=== PATIENT | female | born 1955 | race Caucasian/White ===

== ENCOUNTER 2017-04-15 13:10 | Emergency (ER) | payer BC ==
[~2017-04-15] VITALS: Ht 177.8 cm; Wt 145.1 kg
[2017-04-15 13:10] VITALS: BP_SYST 159
--- NOTE | 2017-04-15 13:10 | NUR ---
BROUGHT BACK TO BED #7 AND TRIAGED, REPORT GIVEN TO BHAVIK
--- NOTE | 2017-04-15 14:56 | NUR ---
ER at bedside examining patient.
[2017-04-15] MEDS ORDERED: KETOROLAC TROMETHAMINE 60 MG/2 ML VIAL IM ONE (15:00)
--- NOTE | 2017-04-15 15:31 | NUR ---
Medicated with Toradol for 09/24 to right ankle and left knee s/p mechanical fall. Denies dizziness or KO
[2017-04-15 15:58] VITALS: BP_SYST 146
--- NOTE | 2017-04-15 15:58 | NUR ---
Patient given written and verbal discharge instructions and verbalizes understanding. ER MD discussed with patient the results and treatment provided. Patient in stable condition. ID arm band removed. Rx of [place] and Motrin given. Patient educated on pain management and to follow up with PMD in 2-3 days. Pain Scale 0/10 Opportunity for questions provided and answered. Medication side effect fact sheet provided.
== END 2017-04-15 15:58 | disposition home or self-care (01) ==
LOC: SED 13:10
DX: S82.61XA Displaced fracture of lateral malleolus of right fibula, initial encounter for closed fracture (principal); M25.562 Pain in left knee; Z88.0 Allergy status to penicillin; Z90.49 Acquired absence of other specified parts of digestive tract; Z90.89 Acquired absence of other organs; Z90.710 Acquired absence of both cervix and uterus; W01.0XXA Fall on same level from slipping, tripping and stumbling without subsequent striking against object, initial encounter; Y93.89 Activity, other specified; Y92.89 Other specified places as the place of occurrence of the external cause; Y99.8 Other external cause status
CPT/HCPCS: 29515; 73564; 73610; 96372; 99284; J1885

== ENCOUNTER 2017-12-14 04:23 | Emergency (ER) | payer BC ==
[~2017-12-14] VITALS: Ht 177.8 cm; Wt 154.2 kg
--- NOTE | 2017-12-14 04:28 | NUR ---
Placed in room 7 . Placed on air sampling and monitoring, blood pressure machine and pulse oximeter. To gown for exam. Side rails up.
[2017-12-14 04:29] VITALS: BP_SYST 170
--- NOTE | 2017-12-14 04:30 | NUR ---
Patient AOx4, ambulatory, presents to ER with complaint of CP 7/10 that woke her up from her sleep. Patient states she felt a tingling sensation to her left arm and a sharp/stabbing pain from the left axilla to the sternum. Patient states she medicated with 2 ASA without relief. Patient states she had an episode of nausea. Per patient, the CP increases with movement and deep breaths. Patient has hx of panic attacks x20 yrs, HTN, and GERD. Patient states she has not medicated with BP meds this morning. BP 170/93. No other symptoms or complaints.
[2017-12-14] MEDS ORDERED: MOEX15TA2 PO (04:38)
[2017-12-14] MEDS ORDERED: ESOM40CA53 PO (04:38)
[2017-12-14] MEDS ORDERED: FURO-149 PO (04:38)
[2017-12-14] MEDS ORDERED: POTA10TA15 PO (04:38)
[2017-12-14] MEDS ORDERED: ALPR0.5T PO (04:38)
--- NOTE | 2017-12-14 04:38 | NUR ---
Medication reconciliation completed with information provided by patient. Any prior medication reconciliation on file was reviewed and corrected.
--- NOTE | 2017-12-14 04:40 | NUR ---
Note undone in EDM - 12/14/17 at 0503 by [email or web address] # [] gauge angiocath placed to []. Use of asceptic technique. Opsite placed over site. Blood return noted. Blood for lab drawn from site. Flushed with 10 cc of normal saline. No evidence of infiltration noted. Patient tolerated well.
--- NOTE | 2017-12-14 04:43 | NUR ---
# 20 gauge angiocath placed to RFA. Use of asceptic technique. Opsite placed over site. Blood return noted. Blood for lab drawn from site. Flushed with 10 cc of normal saline. No evidence of infiltration noted. Patient tolerated well.
--- NOTE | 2017-12-14 04:50 | NUR ---
ER MD Kan at bedside for medical evaluation.
--- NOTE | 2017-12-14 05:13 | NUR ---
Pt resting comfortably in hospital bed. No acute distress, will continue to monitor.
[2017-12-14 05:18] LABS: CALCIUM 8.5 mg/dL (8.4-11.0); CREATININE 1.08 mg/dL (0.55-1.30); POTASSIUM 4.3 mmol/L (3.5-5.1)
[2017-12-14 05:22] LABS: INR 0.9 (0.8-1.2); PROTHROMBIN TIME 9.5 SECS (9.5-12.5)
[2017-12-14 05:24] LABS: ALBUMIN 3.2 g/dL (3.4-4.8); TOTAL BILIRUBIN 0.2 mg/dL (0.0-1.0)
[2017-12-14 05:40] LABS: HEMOGLOBIN 12.6 g/dL (12.0-16.0); WHITE BLOOD COUNT (AUTO) 7.5 K/uL (4.8-10.8)
[2017-12-14 05:41] LABS: HEMATOCRIT 39.7 % (36-48); LYMPHOCYTES % (AUTO) 20.8 % (20.5-51.5); MEAN CORPUSCULAR HEMOGLOBIN 24 pg (27-31); MEAN CORPUSCULAR HGB CONC 32 % (32-36); MEAN CORPUSCULAR VOLUME 75 fL (79.0-98.0); NEUTROPHILS % (AUTO) 69.7 % (40.0-70.0); PLATELET COUNT (AUTO) 131 K/uL (130-430); RED CELL DISTRIBUTION WIDTH 14.9 % (9.0-15.0)
[2017-12-14 05:42] LABS: BASOPHILS # (AUTO) 0.2 K/uL (0.0-0.2); BASOPHILS % (AUTO) 2.3 % (0.0-2.0); EOSINOPHILS # (AUTO) 0.1 K/uL (0.0-0.4); EOSINOPHILS % (AUTO) 1.8 % (0.0-4.0); LYMPHOCYTES # (AUTO) 1.6 K/uL (1.0-5.5); MONOCYTES # (AUTO) 0.4 K/uL (0.0-1.0); MONOCYTES % (AUTO) 5.4 % (1.7-9.3); NEUTROPHILS # (AUTO) 5.2 K/uL (1.8-7.7)
[2017-12-14] MEDS ORDERED: KETOROLAC TROMETHAMINE 15 MG VIAL IVP ONE (05:45)
--- NOTE | 2017-12-14 06:51 | NUR ---
ER Dr. Kan at bedside explaining results to patient.
[2017-12-14 07:03] VITALS: BP_SYST 146
--- NOTE | 2017-12-14 07:03 | NUR ---
Patient given written and verbal discharge instructions and verbalizes understanding. ER MD discussed with patient the results and treatment provided. Patient in stable condition. ID arm band removed. IV catheter removed intact and dressing applied, no active bleeding. Rx of Zofran and [place] given. Patient educated on pain management and to follow up with PMD. Pain Scale 0. Opportunity for questions provided and answered. Medication side effect fact sheet provided.
[2017-12-14 07:44] LABS: BILIRUBIN,URINE NEGATIVE (NEGATIVE); BLOOD, URINE NEGATIVE (NEGATIVE); CLARITY/URINE SL HAZY (CLEAR); COLOR,URINE YELLOW (YELLOW); GLUCOSE,URINE NEGATIVE (NEGATIVE); KETONES,URINE NEGATIVE (NEGATIVE); LEUKOCYTE ESTERASE ,URINE NEGATIVE (NEGATIVE); NITRITE, URINE NEGATIVE (NEGATIVE); PH,URINE 5.5 (5.0-8.0); PROTEIN URINE NEGATIVE (NEGATIVE); UROBILINOGEN,URINE 0.2 (0.2-1.0)
== END 2017-12-14 07:03 | disposition home or self-care (01) ==
LOC: SED 04:23
DX: M25.512 Pain in left shoulder (principal); M54.6 Pain in thoracic spine; M62.838 Other muscle spasm; I10 Essential (primary) hypertension; Z88.1 Allergy status to other antibiotic agents; Z88.8 Allergy status to other drugs, medicaments and biological substances
CPT/HCPCS: 36415; 71045; 80053; 81003; 82550; 83880; 84484; 85025; 85610; 85730; 93005; 96374; 99285; J1885

== ENCOUNTER 2019-09-14 11:55 | Outpatient (CLI) | payer BC, SELFPAY ==
[~2019-09-14 11:55] MED LIST: ALPR0.5T PO; ESOM40CA53 PO; FURO-149 PO; MOEX15TA2 PO; POTA10TA15 PO
--- NOTE | 2019-09-21 12:05 | NUR ---
Patient was notified her COVID-19 "Not Detected" result and instructed to follow the recommended preventive measures ([place] [employer]). Patient verbalizes understanding.
== END 2019-09-14 20:53 | disposition home or self-care (01) ==
LOC: SLB 11:55
PROVIDERS: ATTEND Otolaryngology
DX: Z11.59 Encounter for screening for other viral diseases (principal)
CPT/HCPCS: C9803; U0003

== ENCOUNTER 2022-05-22 07:35 | Emergency (ER) | payer BC ==
[~2022-05-22] VITALS: Ht 177.8 cm; Wt 145.1 kg
[2022-05-22 07:35] VITALS: BP_SYST 173
--- NOTE | 2022-05-22 07:35 | NUR ---
BROUGHT BACK TO BED #8 AND TRIAGED. REPORT GIVEN TO SUSAN
[2022-05-22] MEDS ORDERED: KETOROLAC TROMETHAMINE 30 MG VIAL IM ONE (08:15)
[2022-05-22] MEDS ORDERED: METHOCARBAMOL 1000 MG/10 ML VIAL IM ONE (08:15)
[2022-05-22] MEDS ORDERED: DIAZEPAM 5 MG TABLET (VALIUM) PO ONE (08:15)
--- NOTE | 2022-05-22 08:40 | NUR ---
Pt states "hold off on valium at this time, I am feeling comfortable with the kindness of the staff. "
--- NOTE | 2022-05-22 08:44 | NUR ---
ER at bedside examining patient.
[2022-05-22 08:45] LABS: CALCIUM 8.9 mg/dL (8.4-11.0); CREATININE 1.08 mg/dL (0.55-1.30)
--- NOTE | 2022-05-22 08:45 | NUR ---
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 Pt tolerating well.
[2022-05-22 08:48] LABS: PHOSPHORUS 3.6 mg/dL (2.7-4.5)
[2022-05-22] MEDS ORDERED: METH-800 PO (09:37)
[2022-05-22] MEDS ORDERED: DICL100G30 TP (09:37)
[2022-05-22] MEDS ORDERED: HYDROcodone/ACETAMIN 5-325 MG TAB (NORCO/ VICODIN) PO ONE (10:15)
--- NOTE | 2022-05-22 10:40 | NUR ---
Patient given written and verbal discharge instructions and verbalizes understanding. ER MD discussed with patient the results and treatment provided. Patient in stable condition. ID arm band removed. Rx of Robaxxin and Voltaren given. Patient educated on pain management and to follow up with PMD. Opportunity for questions provided and answered. Medication side effect fact sheet provided.
[2022-05-22 10:41] VITALS: BP_SYST 173
== END 2022-05-22 10:40 | disposition home or self-care (01) ==
LOC: SED 07:35
DX: M79.662 Pain in left lower leg (principal); I10 Essential (primary) hypertension; Z88.0 Allergy status to penicillin; Z79.899 Other long term (current) drug therapy
CPT/HCPCS: 99285; 93971; 80048; 83735; 84100; 36415; 96372; J1885; J2800